=== PATIENT | female | born 1975 | race Caucasian/White ===

== ENCOUNTER 2020-07-15 20:32 | Emergency (ER) | payer OTHER ==
[~2020-07-15] VITALS: Ht 175.3 cm; Wt 70.5 kg
[2020-07-15 20:42] VITALS: TEMP 98.1
[2020-07-15] MEDS ORDERED: PREDNISONE20 MG PO (21:56)
[2020-07-15 22:15] VITALS: BP 109/66; PULSE 73
== END 2020-07-15 22:15 | disposition home or self-care (01) ==
LOC: COL.ER 20:32
DX: J45.901 Unspecified asthma with (acute) exacerbation (principal)
CPT/HCPCS: J7512